=== PATIENT | female | born 1970 | race Two or more races ===

== ENCOUNTER 2019-05-07 15:07 | Emergency (ER) | payer MEDICAID ==
[~2019-05-07] VITALS: Ht 167.6 cm; Wt 106.6 kg
[2019-05-07 15:19] VITALS: BP 142/76
[2019-05-07] MEDS ORDERED: KETOROLAC TROMETH 60MG/2ML VIAL IM ONE (17:30)
== END 2019-05-07 18:22 | disposition home or self-care (01) ==
LOC: ER 15:07
DX: M23.91 Unspecified internal derangement of right knee (principal); M19.90 Unspecified osteoarthritis, unspecified site
CPT/HCPCS: 73562; 93971; 96372; 99284; J1885